=== PATIENT | female | born 1940 | race Caucasian/White ===

== ENCOUNTER 2017-01-06 18:02 | Inpatient (IN) | payer MEDICARE ==
--- NOTE | 2017-01-09 01:18 | NUR ---
PT VERBALIZED UNDERSTANDING OF ALL DC INSTRUCTIONS AND DC MEDICATIONS. DC'D PICC WITH NO COMPLICATIONS AND PLACED GAUZE DRESSING WITH TAPE. PT WAS TAKEN OUT VIA WC WHERE WAS WAITING WITH VEHICLE.
== END 2017-01-08 20:17 | disposition home or self-care (01) | DRG 193 ==
LOC: ER 18:02 → MED 20:38
PROVIDERS: ADMIT Internal Medicine
PROC: 02HV33Z Insertion of Infusion Device into Superior Vena Cava, Percutaneous Approach (ICD-10-PCS; principal; 2017-01-07)
PROC: B548ZZA Ultrasonography of Superior Vena Cava, Guidance (ICD-10-PCS; 2017-01-07)
DX: J09.X2 Influenza due to identified novel influenza A virus with other respiratory manifestations (principal); J96.01 Acute respiratory failure with hypoxia; J91.8 Pleural effusion in other conditions classified elsewhere; N39.0 Urinary tract infection, site not specified; N17.9 Acute kidney failure, unspecified; E86.0 Dehydration; E11.65 Type 2 diabetes mellitus with hyperglycemia; R74.8 Abnormal levels of other serum enzymes; I10 Essential (primary) hypertension; I25.10 Atherosclerotic heart disease of native coronary artery without angina pectoris; Z95.1 Presence of aortocoronary bypass graft; Z85.3 Personal history of malignant neoplasm of breast; F32.9 Major depressive disorder, single episode, unspecified; I73.9 Peripheral vascular disease, unspecified; E78.5 Hyperlipidemia, unspecified; E53.8 Deficiency of other specified B group vitamins; K21.9 Gastro-esophageal reflux disease without esophagitis; Z88.1 Allergy status to other antibiotic agents; Z88.5 Allergy status to narcotic agent; Z88.8 Allergy status to other drugs, medicaments and biological substances; Z79.82 Long term (current) use of aspirin; Z79.02 Long term (current) use of antithrombotics/antiplatelets; Z79.4 Long term (current) use of insulin; Z79.899 Other long term (current) drug therapy; F17.210 Nicotine dependence, cigarettes, uncomplicated; Z83.3 Family history of diabetes mellitus
CPT/HCPCS: 36415; 87502; 93306; C1751; J0696; J1650; J3370; J7050

== ENCOUNTER 2017-01-06 18:02 | Emergency (ER) | payer MEDICARE | END 2017-01-06 20:37 | disposition critical access hospital (66) | LOC: ER 18:02 | DX: N39.0 Urinary tract infection, site not specified (principal); E86.0 Dehydration; N28.9 Disorder of kidney and ureter, unspecified; E11.69 Type 2 diabetes mellitus with other specified complication; R79.89 Other specified abnormal findings of blood chemistry; I10 Essential (primary) hypertension; F17.210 Nicotine dependence, cigarettes, uncomplicated; Z79.82 Long term (current) use of aspirin; Z79.899 Other long term (current) drug therapy; Z88.1 Allergy status to other antibiotic agents; Z88.5 Allergy status to narcotic agent; J09.X2 Influenza due to identified novel influenza A virus with other respiratory manifestations | CPT/HCPCS: 36415; 87502; 96365 ==

== ENCOUNTER 2017-01-15 20:05 | Emergency (ER) | payer MEDICARE | END 2017-01-15 21:55 | disposition home or self-care (01) | LOC: ER 20:05 | DX: E10.65 Type 1 diabetes mellitus with hyperglycemia (principal); J18.9 Pneumonia, unspecified organism; R11.10 Vomiting, unspecified; I10 Essential (primary) hypertension; J44.9 Chronic obstructive pulmonary disease, unspecified; F17.210 Nicotine dependence, cigarettes, uncomplicated; Z79.82 Long term (current) use of aspirin; Z79.899 Other long term (current) drug therapy; Z88.1 Allergy status to other antibiotic agents; Z88.5 Allergy status to narcotic agent | CPT/HCPCS: 36415; 96361; 96374; J2765 ==